=== PATIENT | male | born 1970 | race Caucasian/White ===

== ENCOUNTER 2017-02-24 14:01 | Inpatient (IN) | payer OTHER ==
[~2017-02-24] VITALS: Ht 167.6 cm; Wt 66.3 kg
[2017-02-24 18:59] VITALS: PULSE 90
[2017-02-24 19:05] VITALS: BP 155/100; PULSE 97; RESP 19
[2017-02-24 19:10] VITALS: Ht 167.6 cm; Wt 66.3 kg
[2017-02-24 20:25] VITALS: PULSE 83
[2017-02-24 20:28] VITALS: BP 155/100; RESP 16
[2017-02-24] MEDS ORDERED: ACETAMINOPHEN 325 MG TAB PO PRN (21:30)
[2017-02-24] MEDS: D5-NS + KCL 20 MEQ 1,000 ML IV SCH (21:30)
[2017-02-24] MEDS ORDERED: ONDANSETRON 4 MG INJ IV PRN (21:30)
[2017-02-24] MEDS ORDERED: NACL 0.9% 3 ML SYG IV SCH (21:30)
[2017-02-24] MEDS: CHLORDIAZEPOXIDE 25 MG CAP PO SCH (21:31)
[2017-02-24] MEDS: morphine 10 MG INJ IM PRN (21:33)
[2017-02-24] MEDS: LORAZEPAM 2 MG INJ IM PRN (23:50)
[2017-02-25] VITALS (13 sets, daily range): BP systolic 126–155; BP diastolic 71–100; PULSE 90–123; RESP 16–22
[2017-02-25] MEDS: morphine 10 MG INJ IM PRN (02:31)
[2017-02-25] MEDS: LORAZEPAM 2 MG INJ IM PRN (03:57)
[2017-02-25] MEDS ORDERED: IPRATROPIUM (NEB) 0.5 MG/2.5 ML AMP HHN PRN (04:30)
[2017-02-25] MEDS ORDERED: ACETAMINOPHEN/CODEINE #3 TAB PO PRN (04:30)
[2017-02-25] MEDS ORDERED: ALBUTEROL 0.083% (NEB) 2.5 MG/3 ML AMP HHN PRN (04:30)
[2017-02-25] MEDS ORDERED: ENALAPRILAT 1.25 MG INJ IV PRN (04:30)
[2017-02-25] MEDS: PANTOPRAZOLE 40 MG INJ IV SCH (06:55)
[2017-02-25] MEDS: CEFTRIAXONE 1 GM/50 ML (PMX) 50 ML IVPB SCH (06:55)
[2017-02-25 07:00] LABS: ADD SCAN DIFF NO
[2017-02-25 07:05] LABS: BASOPHILS % 0.4 % (0.0-2.0); EOSINOPHILS # 0.2 10^3/ul (0.0-0.5); EOSINOPHILS % 4.3 % (0.0-7.0); HEMATOCRIT 37.4 % (42.0-52.0); LYMPHOCYTES # 0.7 10^3/ul (0.8-2.9); MEAN CORPUSCULAR HEMOGLOBIN 34.8 pg (29.0-33.0); MEAN CORPUSCULAR HGB CONC 34.8 g/dl (32.0-37.0); MEAN PLATELET VOLUME 10.8 fl (7.4-10.4); MONOCYTE # 0.8 10^3/ul (0.3-0.9); MONOCYTES % 14.4 % (0.0-11.0); NEUTROPHIL # 3.7 10^3/ul (1.6-7.5); NEUTROPHILS % 67.4 % (39.0-77.0); PLATELET COUNT 183 10^3/UL (140-415); RED BLOOD COUNT 3.74 10^6/ul (4.70-6.10); RED CELL DISTRIBUTION WIDTH 16.6 % (11.5-14.5); WHITE BLOOD COUNT 5.5 10^3/ul (4.8-10.8)
[2017-02-25 07:29] LABS: ALBUMIN 3.5 g/dl (3.3-4.9); BILIRUBIN,INDIRECT 0.4 mg/dl (0-1.1); BILIRUBIN,TOTAL 0.4 mg/dl (0.2-1.3); CALCIUM 8.5 mg/dl (8.4-10.2); CREATININE 0.62 mg/dl (0.61-1.24); POTASSIUM 3.9 mmol/L (3.5-5.1)
[2017-02-25] MEDS: MULTIVITAMINS THERAPEUTIC TAB PO SCH (08:27)
[2017-02-25] MEDS: THIAMINE 100 MG TAB PO SCH (08:27)
[2017-02-25] MEDS: FOLIC ACID 1 MG TAB PO SCH (08:27)
[2017-02-25] MEDS: CHLORDIAZEPOXIDE 25 MG CAP PO SCH ×4 (08:27→21:30)
[2017-02-25] MEDS: AMLODIPINE 2.5 MG TAB PO SCH (08:28)
[2017-02-25] MEDS: ENOXAPARIN 40 MG/0.4 ML SYG SC SCH (08:32)
[2017-02-25] MEDS: morphine 10 MG INJ IV PRN ×2 (08:57→20:00)
[2017-02-25] MEDS: LORAZEPAM 2 MG INJ IV PRN ×2 (14:39→23:43)
[2017-02-25] MEDS: D5-NS + KCL 20 MEQ 1,000 ML IV SCH (14:39)
--- NOTE | 2017-02-25 17:17 | QN ---
Documentation Comment [id number] YOSELIN RACHEL MD Feb 25, 2017 17:17
--- NOTE | 2017-02-25 19:29 | HP ---
DATE OF ADMISSION: 02/24/2017 HISTORY OF PRESENT ILLNESS: Mr. Negro is a 47-year-old male who was transferred from the transferring hospital with diagnosis of alcohol abuse. The patient also was diagnosed to have a urinary tract infection. The patient has no records from the other hospital, at the time of my dictation, and patient denies any nausea, vomiting at this point. PAST MEDICAL HISTORY: History of rectal abscess - status post I and D. The patient has history of hypertension. ALLERGY HISTORY: NEGATIVE. FAMILY HISTORY: Negative. SOCIAL HISTORY: Positive for drinking. Denies any smoking at this point. MEDICATIONS At home and patient is currently on: 1. Tylenol No.3. 2. Albuterol. 3. Amlodipine. 4. Rocephin. 5. Librium 6. Vasotec. 7. Lovenox. 8. Folic acid. 9. Morphine. 10. Multiple vitamin. 11. Zofran. 12. Protonix. 13. Potassium. 14. Thiamin. REVIEW OF SYMPTOMS HEENT: Unremarkable. RESPIRATORY: Unremarkable. CARDIOVASCULAR: Unremarkable. ABDOMEN: Unremarkable. EXTREMITIES: Unremarkable. CENTRAL NERVOUS SYSTEM: Complaining of weakness and tremor. PHYSICAL EXAMINATION GENERAL: The patient is awake, alert, anxious, is tremulous. VITAL SIGNS: Pulse 83, blood pressure 148/100. HEAD: Atraumatic, normocephalic. Pupils equal, reactive to light. NECK: Supple. No JVD. LUNGS: Clear. CARDIOVASCULAR: S1, S2 are normal. ABDOMEN: Soft, nontender. Bowel sounds present. No palpable mass or hepatosplenomegaly. No guarding, rebound tenderness. EXTREMITIES: No cyanosis, clubbing, edema. CENTRAL NERVOUS SYSTEM: Awake, alert, no focal deficit. LABORATORY DATA: Sodium 130, potassium 3.9. The patient's hematocrit 37.4. IMPRESSION 1. Alcohol abuse. 2. Hypernatremia. 3. Pending delirium tremens. 4. History a rectal abscess. . PLAN: To continue current treatment, Ativan, Librium, IV fluid, thiamin, folic acid, multiple vitamin. Orders were done. Dictated By: YOSELIN RACHEL MD BS/NTS Conf#: [id number] DID#: [id number] [facility]
[2017-02-26] VITALS (9 sets, daily range): BP systolic 130–149; BP diastolic 89–106; PULSE 85–128; RESP 18–20
[2017-02-26] MEDS: morphine 10 MG INJ IV PRN (02:50)
[2017-02-26] MEDS: D5-NS + KCL 20 MEQ 1,000 ML IV SCH (04:58)
[2017-02-26] MEDS: LORAZEPAM 2 MG INJ IV PRN ×2 (04:59→12:30)
[2017-02-26] MEDS: CEFTRIAXONE 1 GM/50 ML (PMX) 50 ML IVPB SCH (05:00)
[2017-02-26] MEDS: PANTOPRAZOLE 40 MG INJ IV SCH (05:00)
[2017-02-26 06:35] LABS: ADD SCAN DIFF NO
[2017-02-26 06:50] LABS: BASOPHILS % 0.4 % (0.0-2.0); EOSINOPHILS # 0.3 10^3/ul (0.0-0.5); EOSINOPHILS % 6.4 % (0.0-7.0); HEMATOCRIT 37.1 % (42.0-52.0); HEMOGLOBIN 12.7 g/dl (14.0-18.0); LYMPHOCYTES # 0.8 10^3/ul (0.8-2.9); LYMPHOCYTES % 14.3 % (15.0-51.0); MEAN CORPUSCULAR HGB CONC 34.2 g/dl (32.0-37.0); MEAN CORPUSCULAR VOLUME 99.2 fl (82.0-101.0); MEAN PLATELET VOLUME 10.6 fl (7.4-10.4); MONOCYTE # 0.8 10^3/ul (0.3-0.9); MONOCYTES % 15.4 % (0.0-11.0); NEUTROPHIL # 3.4 10^3/ul (1.6-7.5); NEUTROPHILS % 63.1 % (39.0-77.0); PLATELET COUNT 199 10^3/UL (140-415); RED BLOOD COUNT 3.74 10^6/ul (4.70-6.10); RED CELL DISTRIBUTION WIDTH 16.3 % (11.5-14.5); WHITE BLOOD COUNT 5.3 10^3/ul (4.8-10.8)
[2017-02-26 07:04] LABS: ALBUMIN 3.8 g/dl (3.3-4.9); ALBUMIN/GLOBULIN RATIO 0.97; BILIRUBIN,INDIRECT 0.8 mg/dl (0-1.1); BILIRUBIN,TOTAL 0.8 mg/dl (0.2-1.3); CALCIUM 8.6 mg/dl (8.4-10.2); CREATININE 0.65 mg/dl (0.61-1.24); POTASSIUM 3.7 mmol/L (3.5-5.1); TOTAL PROTEIN 7.7 g/dl (6.1-8.1)
[2017-02-26] MEDS: FOLIC ACID 1 MG TAB PO SCH (08:30)
[2017-02-26] MEDS: THIAMINE 100 MG TAB PO SCH (08:30)
[2017-02-26] MEDS: MULTIVITAMINS THERAPEUTIC TAB PO SCH (08:30)
[2017-02-26] MEDS: CHLORDIAZEPOXIDE 25 MG CAP PO SCH ×2 (08:30→12:30)
[2017-02-26] MEDS: AMLODIPINE 2.5 MG TAB PO SCH (08:31)
[2017-02-26] MEDS: ENOXAPARIN 40 MG/0.4 ML SYG SC SCH (08:36)
--- NOTE | 2017-02-26 14:21 | PN ---
Date/Time of Note Date/Time of Note DATE: 02/26/17 TIME: 14:19 Assessment/Plan VTE Prophylaxis VTE Prophylaxis Intervention: other Lines/Catheters IV [facility] Saline Lock Assessment/Plan Chief Complaint/Hosp Course IMPRESSION 1. Alcohol abuse. 2. Hypeonatremia 3. delirium tremens. 4. History a rectal abscess. 5. etoh abuse plan seroquel ativan Problems: Subjective 24 Hr Interval Summary Subjective hx not possible: other (delirius+) Exam/Review of Systems Vital Signs Vitals Vital Signs Date Time Temp Pulse Resp B/P Pulse Ox O2 Delivery O2 Flow Rate FiO2 02/26/17 12:27 128 02/26/17 06:57 98.2 18 130/89 100 02/24/17 19:05 Room Air Intake and Output 02/25/17 02/25/17 02/26/17 15:00 23:00 07:00 Intake Total 1490 ml 1620 ml Balance 1490 ml 1620 ml Exam Neck: supple Respiratory: clear to auscultation Cardiovascular: regular rate and rhythm Gastrointestinal: soft Musculoskeletal: nl extremities to inspection Extremities: normal pulses Results Result Diagram: 02/26/17 0511 02/26/17 0511 Results 24 hrs Laboratory Tests Test 02/26/17 05:11 White Blood Count 5.3 Red Blood Count 3.74 L Hemoglobin 12.7 L Hematocrit 37.1 L Mean Corpuscular Volume 99.2 Mean Corpuscular Hemoglobin 34.0 H Mean Corpuscular Hemoglobin Concent 34.2 Red Cell Distribution Width 16.3 H Platelet Count 199 Mean Platelet Volume 10.6 H Neutrophils % 63.1 Lymphocytes % 14.3 L Monocytes % 15.4 H Eosinophils % 6.4 Basophils % 0.4 Nucleated Red Blood Cells % 0.0 Neutrophils # 3.4 Lymphocytes # 0.8 Monocytes # 0.8 Eosinophils # 0.3 Basophils # 0.0 Nucleated Red Blood Cells # 0.0 Sodium Level 133 L Potassium Level 3.7 Chloride Level 103 Carbon Dioxide Level 22 Anion Gap 12 Blood Urea Nitrogen 7 Creatinine 0.65 Glucose Level 101 Calcium Level 8.6 Total Bilirubin 0.8 Direct Bilirubin 0.00 Indirect Bilirubin 0.8 Aspartate Amino Transf (AST/SGOT) 115 H Alanine Aminotransferase (ALT/SGPT) 61 Alkaline Phosphatase 132 H Total Protein 7.7 Albumin 3.8 Globulin 3.90 H Albumin/Globulin Ratio 0.97 Medications Medications Current Medications Potassium Chloride/Dextrose/ Sod Cl (D5-NS + KCl 20 Meq) 1,000 ml @ 70 mls/hr [id number] IV Last administered on 02/26/17 04:58; Admin Dose 70 MLS/HR; Start at 21:30 Pantoprazole (Protonix Iv) 40 mg DAILY@06 IV Last administered on 02/26/17 05: 00; Admin Dose 40 MG; Start 02/25/17 at 06:00 Multivitamins Therapeutic (Theragran) 1 tab DAILY PO Last administered on 08:30; Admin Dose 1 TAB; Start 02/25/17 at 09:00 Chlordiazepoxide (Librium) 25 mg QID PO Last administered on 02/26/17 12:30; Admin Dose 25 MG; Start 02/24/17 at 21:30 Ondansetron HCl (Zofran Inj) 4 mg Q6H PRN IV NAUSEA AND/OR VOMITING Last administered on 02/25/17 14:35; Admin Dose 4 MG; Start 02/24/17 at 21:30 Acetaminophen (Tylenol Tab) 650 mg Q6H PRN PO PAIN LEVEL 1-3 OR FEVER; Start at 21:30 Enoxaparin Sodium (Lovenox) 40 mg DAILY SC Last administered on 02/26/17 08:36 ; Admin Dose 40 MG; Start 02/25/17 at 09:00 Lorazepam (Ativan) 1 mg Q4H PRN IV ANXIETY Last administered on 02/26/17 12:30 ; Admin Dose 1 MG; Start 02/25/17 at 05:30 Morphine Sulfate (morphine) 2 mg Q4H PRN IV PAIN LEVEL 6-10 Last administered on 02/26/17 02:50; Admin Dose 2 MG; Start 02/25/17 at 05:30 Acetaminophen/ Codeine Phosphate (Tylenol No.3) 1 tab Q6H PRN PO PAIN LEVEL 1-5 ; Start 02/25/17 at 04:30 Amlodipine Besylate 2.5 mg 2.5 mg DAILY PO Last administered on 02/26/17 08:31 ; Admin Dose 2.5 MG; Start 02/25/17 at 09:00 Ceftriaxone Sodium (Rocephin) 50 ml @ 100 mls/hr Q24H IVPB Last administered on 02/26/17 05:00; Admin Dose 100 MLS/HR; Start 02/25/17 at 06:00 Enalaprilat (Vasotec Iv) 0.625 mg Q6H PRN IV ELEVATED BLOOD PRESSURE; Start at 04:30 Folic Acid (Folic Acid) 1 mg DAILY PO Last administered on 02/26/17 08:30; Admin Dose 1 MG; Start 02/25/17 at 09:00 Thiamine HCl (Vitamin B1) 100 mg DAILY PO Last administered on 02/26/17 08:30 ; Admin Dose 100 MG; Start 02/25/17 at 09:00 Lorazepam (Ativan) 2 mg ONCE ONCE IV ; Start 02/26/17 at 14:30; Stop 02/26/17 at 14:31 Lorazepam (Ativan) 2 mg Q4H PRN IV anxiety ,agitation; Start 02/26/17 at 14:30 YOSELIN RACHEL MD Feb 26, 2017 14:21
[2017-02-26] MEDS ORDERED: LORAZEPAM 2 MG INJ IV ONE (14:30)
[2017-02-26] MEDS ORDERED: LORAZEPAM 2 MG INJ IV PRN (14:30)
[2017-02-27] MEDS ORDERED: QUETIAPINE 25 MG TAB PO SCH (09:00)
[2017-02-27] MEDS ORDERED: MULTIVITAMINS 10 ML, THIAMINE 100 MG, FOLIC ACID 1 MG in SOD CHLORIDE 0.9% 1,000 ML IVPB SCH (09:00)
== END 2017-02-26 16:30 | disposition left against medical advice (07) | DRG 894 ==
LOC: TEL 18:56
PROVIDERS: ADMIT Internal Medicine Nephrology; ATTEND Internal Medicine Nephrology
DX: F10.231 Alcohol dependence with withdrawal delirium (principal); E87.0 Hyperosmolality and hypernatremia
CPT/HCPCS: 80053; 83735; 84100; 85025; 87081; C9113; J0696; J1650; J2060; J2270; J2405; J3411; J3480; J7030